=== PATIENT | female | born 1980 | race Caucasian/White ===

== ENCOUNTER 2016-10-21 23:20 | Emergency (ER) | payer OTHER ==
[~2016-10-21 23:20] MED LIST: ACETAMINOPHEN PR; AMOXICILLIN PO; AMOXICILLIN500 M1 PO; BACTRIM DS TABL1 TA1 PO; BACTRIM DS TABL1 TAB PO; BACTROBAN22 GM TP; BLOOD PRESSURE MED PO; FLEXERIL10 M1; HYDROCODONE 7.5MG PO; IBUPROFEN PO; IBUPROFEN100 MG PO; IBUPROFEN800 MG; IBUPROFEN800 MG PO; IMPLANON; KEFLEX PO; KEFLEX500 M1 PO; LORTAB 5/500 TA1 TA1 PO; LORTAB 5/500 TA1 TA2 PO; MACROBID100 MG PO; METOPROLOL SUCC25 MG; ORUDIS75 M1 PO; PEN-VEE K PO; PRENATAL1 TA1 PO; PROPRANOLOL PO; VOLTAREN75 MG PO
[2016-10-21] MEDS ORDERED: LISINOPRIL20 MG (23:51)
[2016-10-21] MEDS ORDERED: GABAPENTIN300 MG PO (23:51)
[2016-10-21] MEDS ORDERED: HYDROCODON-ACE1 EAC5 (23:52)
== END 2016-10-22 01:00 | disposition home or self-care (01) ==
LOC: SED 23:20
DX: L02.412 Cutaneous abscess of left axilla (principal); I10 Essential (primary) hypertension; Z90.710 Acquired absence of both cervix and uterus; Z90.49 Acquired absence of other specified parts of digestive tract; F17.210 Nicotine dependence, cigarettes, uncomplicated; Z88.8 Allergy status to other drugs, medicaments and biological substances; Z79.899 Other long term (current) drug therapy
CPT/HCPCS: 10060; 99283